=== PATIENT | male | born 1970 | race African-American/Black ===

== ENCOUNTER 2017-05-05 06:14 | Emergency (ER) | payer SELFPAY ==
[~2017-05-05] VITALS: Ht 182.9 cm; Wt 87.5 kg
[~2017-05-05 06:14] MED LIST: ASPI-1160
[2017-05-05] MEDS ORDERED: NITROGLYCERIN OINT 1GM/INCH UDPKT TD STA (08:06)
[2017-05-05] MEDS ORDERED: MORPHINE SULFATE 4 MG/ML CPJ (NOT FOR IM USE) IV STA (08:06)
[2017-05-05] MEDS ORDERED: ASPIRIN 325MG EC TABLET PO ONE (08:15)
[2017-05-05 08:56] LABS: BASOPHILS % 0.8 % (0.0-2.0); EOSINOPHILS % 0.8 % (0.0-5.0); HEMATOCRIT. 40.8 % (42.0-52.0); HEMOGLOBIN. 13.8 g/dL (14.0-18.0); LYMPHOCYTES % 32.8 % (20.0-50.0); MEAN CORPUSCULAR HEMOGLOBIN 31.3 pg (28.0-32.0); MEAN CORPUSCULAR VOLUME 92.6 fL (80.0-94.0); MEAN PLATELET VOLUME 8.4 fl (7.4-10.4); MONOCYTES % 11.7 % (2.0-8.0); NEUTROPHILS % 53.9 % (40.0-76.0); PLATELET 228 x1000/uL (130-400); RED BLOOD CELL COUNT 4.41 mill/uL (4.7-6.1); RED CELL DISTRIBUTION WIDTH 12.3 % (11.6-14.6)
[2017-05-05 09:04] LABS: CHLORIDE 105 mEq/L (98-107)
[2017-05-05 15:00] VITALS: BP 120/65
[2017-05-05] MEDS ORDERED: ONDANSETRON HCL 4MG/2ML VIAL IV PRN (15:00)
[2017-05-05] MEDS ORDERED: DIPHENHYDRAMINE 50MG/ML VIAL IV PRN (15:00)
[2017-05-05] MEDS ORDERED: ACETAMINOPHEN 325MG TABLET PO PRN (15:00)
[2017-05-05] MEDS ORDERED: NA PHOS,M-B/NA PHOS,DI-BA ENEMA 118ML PR PRN (15:00)
[2017-05-05] MEDS ORDERED: GUAIFENESIN 200MG/10ML SUGAR FREE UDC PO PRN (15:00)
[2017-05-05] MEDS ORDERED: NITROGLYCERIN 0.4MG TABLET SL SL PRN (15:00)
[2017-05-05] MEDS ORDERED: IPRATROPIUM/ALBUTEROL 0.5-3(2.5)MG/3ML NEB INH PRN (15:00)
[2017-05-05] MEDS ORDERED: MAGNESIUM/ALUMINUM HYDROXIDE/SIMETHICONE 30ML UDC PO PRN (15:00)
[2017-05-05] MEDS ORDERED: CLONIDINE 0.1MG TABLET PO PRN (15:00)
[2017-05-05] MEDS ORDERED: DOCUSATE SODIUM 100MG CAPSULE PO PRN (15:00)
[2017-05-05] MEDS ORDERED: LORAZEPAM 0.5MG TABLET PO PRN (15:00)
[2017-05-05] MEDS ORDERED: ZOLPIDEM TARTRATE 5MG TABLET PO PRN (15:00)
[2017-05-05] MEDS ORDERED: ENOXAPARIN 40MG/0.4ML SYR SUBCUT SCH ×2 (15:00→16:30)
[2017-05-05] MEDS ORDERED: KETOROLAC 15MG/ML VIAL IV PRN (15:00)
[2017-05-05] MEDS ORDERED: SUCRALFATE 1 G/10 ML UDC PO SCH ×2 (17:00→17:15)
[2017-05-05] MEDS ORDERED: FAMOTIDINE 20MG/2ML VIAL IV SCH ×2 (21:00→21:15)
[2017-05-06] MEDS ORDERED: ASPIRIN 325MG EC TABLET PO SCH ×2 (09:00)
== END 2017-05-05 16:15 | disposition left against medical advice (07) ==
LOC: ER 07:22 → CANBEDREQ 16:30
DX: I50.9 Heart failure, unspecified (principal); E78.00 Pure hypercholesterolemia, unspecified; R07.9 Chest pain, unspecified; Z79.82 Long term (current) use of aspirin
CPT/HCPCS: 36415; 71045; 80053; 80061; 83036; 83690; 83880; 84484; 85025; 93005; 93970; 99285; J2270; Z7610

== ENCOUNTER 2018-11-08 10:36 | Emergency (ER) | payer SELFPAY | END 2018-11-08 11:50 | disposition left against medical advice (07) | LOC: ER 10:36 | DX: R20.0 Anesthesia of skin (principal); R07.9 Chest pain, unspecified; Z53.21 Procedure and treatment not carried out due to patient leaving prior to being seen by health care provider ==